=== PATIENT | female | born 1975 | race Caucasian/White ===

== ENCOUNTER 2017-01-07 13:34 | Emergency (ER) | payer OTHER ==
[2017-01-07 13:41] VITALS: BP 149/123
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
[2017-01-07] MEDS ORDERED: TORADOL 60 MG VIAL IM ONE (14:34)
[2017-01-07] MEDS ORDERED: TORADOL 60 MG VIAL ONE (14:57)
--- NOTE | 2017-01-07 15:13 | CT ---
HISTORY: Low back pain, left hip pain with radiculopathy. Left leg numbness. Study: CT lumbar spine without contrast Comparison: April 04, 2014 Technique: Multiple axial images of the lumbar spine were obtained from the thoracolumbar junction to the sacrum without the administration of IV contrast. Sagittal and coronal reformats were perfor med and reviewed. Dose reduction techniques utilized automatic exposure control. Findings: There is a low-grade forward subluxation of L4 upon L5, not seen on the patient's prior exam. There is no evidence of fracture. T12-L1, L1-L2, L2-L3 and L3-L4 levels of normal. Broad disc ridging is present at the level of forward subluxation of L4 upon L5. There is bilateral facet joint hypertrophy more pronounced on the left side. There are bilateral synovial cyst present just inferior to the plane of the L4-5 disc space. The larger cyst is present on the left measuring about 1.3 centimeters in maximum dimension . Both of the cyst displays some peripheral calcification . The findings have resulted in severe central spinal stenosis at this level . Further evaluation b y MRI is suggested. A broad posterior disk ridge is present at L5-S1 with bilateral facet joint hypertrophy resulting in mild bilateral foraminal stenosis but no significant central spinal stenosis is seen. The surroundi ng paraspinous soft tissues are normal in their noncontrasted appearance. IMPRESSION: Central spinal stenosis has developed at the L4-5 level which is severe as described above. This sharlene ears to be on the basis of bilateral synovial cyst with calcified margins. Further evaluation by MRI is strongly encouraged. Reported By:
== END 2017-01-07 16:23 | disposition home or self-care (01) ==
LOC: ER 13:34
DX: G96.19 Other disorders of meninges, not elsewhere classified (principal); M48.06 Spinal stenosis, lumbar region; M25.552 Pain in left hip; M54.42 Lumbago with sciatica, left side
CPT/HCPCS: 72131; 96372; 99282; 99283; J1885

== ENCOUNTER 2017-01-11 14:46 | Emergency (ER) | payer OTHER ==
[2017-01-11 14:52] VITALS: BP 135/92
--- NOTE | 2017-01-11 14:53 | DR.GENAD ---
HPI - Complaint/Symptoms Chief Complaint Doctors Comments: 41yo with complaint of left hip and leg pain x 6 days. seen in Er and Ct scan shows spinal stenosis L4-5. case was discussed with at [facility] and was scheduled for appt and MRI. Did not follow up and has run out of pain medication wanting refill. - Nurses notes reviewed Nurses Notes Review: Yes - Source History Provided: Patient - Mode of Arrival Mode of Arrival: Ambulatory - Timing Came on: Suddenly - Duration Duration: Since Onset How lon Duration: Days - Location Location: lumbar - Severity Severity: Moderate - Modifying Factors Worsens:: movement - Associated Signs and Symptoms Associated Signs and Symptoms: numbness left leg PMH - PMH Past Medical History: Arthritis, Diabetes, Hypertension, Seizures Past Surgical History: Yes Surgical History: Cholecystectomy, CH[employer] Surgery - Family History Family Medical History: Diabetes Mellitus, Cancer, [place], Coronary Artery Disease, Heart Failure, Hypertension - Social History Do you use any recreational Drugs:: Yes (thc for pain) ROS - Review of Systems Constitutional: No Symptoms Reported Eyes: No Symptoms Reported ENTM: No Symptoms Reported Respiratoy: No Symptoms Reported Cardiovascular: No Symptoms Reported Genitourinary: No Symptoms Reported Neurological: Numbness (left leg) Musculoskeletal: No Symptoms Reported Integumentary: No Symptoms Reported Hematologic/Lymphatic: No Symptoms Reported Endocrine: No Symptoms Reported Psychiatric: No Symptoms Reported PE - Vital Signs Vitals: Temperature 98.6 F Pulse Rate 97 Respiratory Rate 16 Blood Pressure 135/92 O2 Sat by Pulse Oximetry 97 - General Limitations: No Limitations General Appearance: Alert, In No Apparent Distress - Head Head Exam: Normal Inspection - Eyes Eye exam: Normal Appearance, EOMI. negative: Scleral Icterus, Conjunctival Injection - ENT ENT Exam: Normal Exam External Ear Exam: Normal External Inspection - Neck Neck Exam: Normal Inspection, Full ROM, Trachea Midline - Chest Chest Inspection: Normal Inspection - Respiratory Respiratory Exam: negative: Accessory Muscle Use, Respiratory Distress - Extremities Extremities Exam: Normal Inspection, Full ROM, Tenderness (lumbar area, mild) - Back Back Exam: Normal Inspection. negative: (R) Straight Leg Raise, (L) Straight Leg Raise - Neurologic Neurological Exam: Alert, Oriented X3, CN II-XII Intact - Psychiatric Psychiatric Exam: Normal Affect - Skin Skin Exam: Intact, Normal Color - Diagnosis Discharge Problem: Lumbar stenosis with neurogenic claudication - Discharge Plan Condition: Stable Prescriptions: Indomethacin [Indocin Cap 25 mg] 25 mg PO TID #30 cap - Follow ups/Referrals Follow ups/Referrals: ANDREIA PRABHAKAR [Primary Care Provider] - 3 days - Instructions Additional Instructions: [facility]
[2017-01-11] MEDS ORDERED: INDOCIN CAP 25 MG PO ONE ×2 (15:21→15:24)
[2017-01-11] MEDS ORDERED: PREDNISONE TAB 20 MG PO ONE ×2 (15:21→15:24)
== END 2017-01-11 15:31 | disposition home or self-care (01) ==
LOC: ER 14:46
DX: M48.06 Spinal stenosis, lumbar region (principal)
CPT/HCPCS: 99282; J7506

== ENCOUNTER 2017-01-14 21:50 | Emergency (ER) | payer OTHER ==
[2017-01-14 21:35] VITALS: BP 127/77; BMI 30.7
--- NOTE | 2017-01-15 00:04 | DR.GENAD ---
HPI - PCP Primary Care Physician: praveen - Complaint/Symptoms Chief Complaint:: pt states" i just found out i have tumors in my back i have not had any sleep this is the 3rd time i've been here this week for pain" - Source History Provided: Patient - Mode of Arrival Mode of Arrival: Ambulatory - Timing Onset of Chief Complaint: 01/07/17 PMH - PMH Past Medical History: Yes Past Medical History: Arthritis, Diabetes, Hypertension, Seizures Past Surgical History: Yes Surgical History: Cholecystectomy, [employer] Surgery - Family History History of Family Medical Conditions: Yes Family Medical History: Diabetes Mellitus, Cancer, [place], Coronary Artery Disease, Heart Failure, Hypertension - Social History Type of Tobacco Use: Cigarettes Does any household member use tobacco: No Alcohol Use: None Do you use any recreational Drugs:: Yes (thc for pain) Lives With: Family Lives Where: Home - infectious screening In the last 2 months have you had wt loss of >10#?: NO Have you had fever, night sweats or hemotysis?: No Have you traveled outside the country in the last 6 months?: No Isolation: Standard ROS - Review of Systems Constitutional: No Symptoms Reported Eyes: No Symptoms Reported ENTM: No Symptoms Reported Respiratoy: No Symptoms Reported Cardiovascular: No Symptoms Reported Gastrointestinal/Abdominal: No Symptoms Reported Genitourinary: No Symptoms Reported Neurological: No Symptoms Reported Integumentary: Rash (back) Hematologic/Lymphatic: No Symptoms Reported Endocrine: No Symptoms Reported Psychiatric: No Symptoms Reported All Other Systems: Reviewed and Negative PE - Vital Signs Vitals: Temperature 98.6 F Pulse Rate 93 Respiratory Rate 18 Blood Pressure 127/77 O2 Sat by Pulse Oximetry 99 - General Limitations: No Limitations General Appearance: Alert, In No Apparent Distress - Head Head Exam: Normal Inspection, Atraumatic - Eyes Eye exam: Normal Appearance, PERRL, EOMI - ENT ENT Exam: Normal Exam External Ear Exam: Normal External Inspection TM/Canal Exam: Bilateral Normal Nose Exam: Normal Nose Exam Mouth Exam: Normal Inspection Throat Exam: Normal Inspection - Neck Neck Exam: Normal Inspection - Chest Chest Inspection: Normal Inspection - Respiratory Respiratory Exam: Normal Lung Sounds Bilat Respiratory Exam: Bilateral Clear to Auscultation - Cardiovascular Cardiovascular Exam: Regular Rate - Abdominal Exam Abdominal Exam: Normal Inspection Abdominal Tenderness: negative: RUQ, RLQ, LUQ, LLQ, Epigastrium, Suprapubic, Diffuse, Mild, Moderate, Severe, Other - Extremities Extremities Exam: Normal Inspection - Back Back Exam: Rashes (Smal circular rash with central crusting ) - Neurologic Neurological Exam: Alert, Oriented X3, CN II-XII Intact - Psychiatric Psychiatric Exam: Normal Affect, Normal Mood - Diagnosis Discharge Problem: Staph skin infection - Discharge Plan Condition: Stable - Follow ups/Referrals Follow ups/Referrals: ANDREIA PRABHAKAR [Primary Care Provider] - 3 days - Instructions
== END 2017-01-15 00:25 | disposition home or self-care (01) ==
LOC: ER 21:50
DX: A49.02 Methicillin resistant Staphylococcus aureus infection, unspecified site (principal)
CPT/HCPCS: 99281; 99282

== ENCOUNTER → 2017-02-26 | Outpatient (CLI) | payer OTHER ==
--- NOTE | 2017-02-26 11:49 | MRI ---
HISTORY: Back pain, left radiculopathy Study: MRI lumbar spine without contrast Comparison: None Technique: Multiplanar multi-sequence MRI of the lumbar spine was obtained. Sagittal T1, sagittal T 2, and stir weighted images, axial T1, and axial T2 images were obtained. Findings: The lumbar spine demonstrates normal alignment with the expected signal characteristics of the bone marrow. The conus of the cord terminates normally. T12 -- L1: No evidence for compressive disc disease. The neural foramina are patent. The joints are normal. L1 -- L2: No evidence for compressive disc disease. The neural foramina are patent. The joints are n ormal. L2 -- L3: No evidence for compressive disc disease. The neural foramina are patent. The joints are n ormal. L3 -- L4: No evidence for compressive disc disease. The neural foramina are patent. The joints are n ormal. L4 -- L5: Mild concentric disc bulging effaces the thecal sac and contributes along with ligamentous hypertrophy and bilateral facet arthropathy to a relative spinal stenosis with lateral recess and f oraminal narrowing bilaterally left worse than right. Additional a just caudal to the disc level the re are bilateral synovial cyst originating from the facet joint measuring 1.2 by 0.7 by 1.6 centimet ers on the left and 0.6 by 1.5 x 0.5 centimeters on the right. These contribute to significant theca l sac effacement. L5 -- S1: Mild concentric disc bulging is associated with a central annular rent. It contributes onl y to mild lateral recess narrowing bilaterally. The joints are normal. IMPRESSION: As above Reported By:
== END ==
LOC: RAD 09:02
PROVIDERS: ATTEND Nurse Practitioner Family
DX: M48.06 Spinal stenosis, lumbar region (principal); M71.38 Other bursal cyst, other site
CPT/HCPCS: 72148

== ENCOUNTER 2017-10-26 16:31 | Emergency (ER) | payer OTHER ==
--- NOTE | 2017-10-26 16:42 | DR.FBACK ---
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 Surgery - Family History Family Medical History: Diabetes Mellitus, Cancer, [place], Coronary Artery Disease, Heart Failure, Hypertension - Social History Do you use any recreational Drugs:: Yes (thc for pain) PE - Vitals Vital Signs: Temp Pulse Pulse Resp BP BP Pulse Ox 10/26/17 18:04 71 18 147/91 99 10/26/17 16:31 98.5 F 70 18 125/83 100 01/14/17 21:32 127/77 - Diagnosis Discharge Problem: Right hip pain Back pain Qualifiers: Back pain location: low back pain Chronicity: acute Back pain laterality: bilateral Sciatica presence: with sciatica Sciatica laterality: sciatica of right side Qualified Code(s): M54.41 - Lumbago with sciatica, right side - Discharge Plan Condition: Stable - Follow ups/Referrals Follow ups/Referrals: ANDREIA PRABHAKAR [Primary Care Provider] - 3 days - Instructions Instructions: Musculoskeletal Pain, Back Pain, Adult, [id number] Additional Instructions: RETURN TO ED IF WORSE. CONTINUE WITH MED AT HOME.
[2017-10-26 16:56] VITALS: BMI 27.3
[2017-10-26] MEDS ORDERED: MORPHINE SULFATE INJ 4 MG IV ONE (17:47)
[2017-10-26] MEDS ORDERED: MORPHINE SULFATE INJ 4 MG ONE (17:47)
[2017-10-26] MEDS ORDERED: ZOFRAN INJ 4 MG VIAL ONE (17:47)
[2017-10-26] MEDS ORDERED: ZOFRAN INJ 4 MG VIAL IVP ONE (17:47)
--- NOTE | 2017-10-26 18:00 | CT ---
CT LUMBAR SPINE WITHOUT CLINICAL HISTORY: 42-year-old female with low back pain radiating to the right hip. Back surgery 18 w eeks prior. COMPARISON: CT lumbar spine 01/07/2017. TECHNIQUE: Multiple, noncontrasted axial CT images were obtained from the thoracolumbar junction to the sacrum and reconstructed in the sagittal and coronal planes. FINDINGS: The most caudad, fully-formed intervertebral disc will be labeled L5-S1 for the purpose of this dictation and in keeping with prior imaging. Mild straightening of the lumbar lordosis as imaged . Postsurgical changes within the soft tissues and musculature at the L4-L5 level with wide resection laminectomy L4. Subtle degenerative retrolisthesis L5 on S1 with mild loss of disc height. Vertebral body heights are preserved. Remaining disc heights are preserved. The posterior elements are otherwi se normal in appearance and alignment. There is no evidence of significant neural foraminal stenosis or central canal compromise. T12-L1: No central canal or neural foraminal stenosis. L1-L2: No central canal or neural foraminal stenosis. L2-L3: Small disc bulge without central canal or neural foraminal stenosis. L3-L4: Small disc bulge with mild facet hypertrophy without central canal or neural foraminal stenosi s. L4-L5: Severe facet hypertrophy with disc bulge and postsurgical changes as described above with mild left neural foraminal stenosis. L5-S1: No central canal or neural foraminal stenosis. IMPRESSION: 1. No acute fracture or malalignment. 2. Status post wide resection laminectomy L4 with mild left neural foraminal stenosis. 3. Consider nonemergent outpatient MR lumbar spine for further evaluation. Reported By:
--- NOTE | 2017-10-26 18:00 | CT ---
CT pelvis without contrast Indication: Mid lower back pain radiating to the right hip and right leg. History of back surgery 18 weeks prior. Right foot numbness Technique: Helical images through the pelvis without contrast. Coronal and sagittal reformats provide d. 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 Minimal symphysis pubis DJD noted. Hip joints intact with m inimal joint degenerative change noted. No large hip joint effusion noted. Muscles and soft tissues a bout the hips appear normal. Neurovascular structures normal. Diverticulosis noted. Appendix is joon l. Deep soft tissues of the pelvis appear. Previously seen synovial cyst on 01/07/2017 CT of 03/08/2017 MR have presumably been resected, with p ostsurgical change noted lower lumbar spine. Region of the prior surgery is only partially visualized this study. See separately dictated CT lumbar spine. Stranding is seen in the surgical bed with spin al canal stenosis at L4-L5 partially visualized. Sacrum appears normal. Impression: 1. Postsurgical change of the lumbar spine, partially visualized. See separately dictated CT lumbar s pine. 2. Mild pelvic degenerative changes without other acute abnormality. 3. Colonic diverticulosis. Reported By:
[2017-10-26 18:05] VITALS: BP 147/91
== END 2017-10-26 18:36 | disposition home or self-care (01) ==
LOC: ER 16:34
DX: M54.41 Lumbago with sciatica, right side (principal); M25.551 Pain in right hip
CPT/HCPCS: 72131; 72192; 96365; 96374; 96375; 99282; 99283; A4222; J2270; J2405